=== PATIENT | female | born 1960 | race Caucasian/White ===

== ENCOUNTER 2016-09-10 11:20 | Outpatient (CLI) | payer MEDICARE ==
[2016-09-10 12:18] LABS: #Basophils 0.1 thou/uL (0.0-0.2); #Eosinphils 0.1 thou/uL (0.0-0.7); #Lymphocytes 2.1 thou/uL (1.20-3.40); #Monocytes 0.5 thou/uL (0.11-0.59); #Neutrophils 4.7 thou/uL (1.40-6.50); %Eosinophils 1.2 % (0.0-10.0); %Monocytes 6.9 % (0.0-10.0); Hematocrit 43.3 % (36.0-47.0); Mean Platelet Volume 7.8 fL (7.4-10.4); Red Blood Cell (RBC) Count 4.82 mill/uL (4.20-5.40); White Blood Cell (WBC) Count 7.5 thou/uL (4.8-10.8)
[2016-09-10 12:34] LABS: ALT (SGPT) 23 U/L (0-55); AST (SGOT) 21 U/L (5-34); Alkaline Phosphatase 95 U/L (40-150); Anion Gap 17 mmol/L (10-20); BUN (Urea Nitrogen) 11 mg/dL (9.8-20.1); Bilirubin, Total 0.7 mg/dL (0.2-1.2); Calc. Creatinine Clearance 0 mL/min (70-130); Calcium 10.2 mg/dL (7.8-10.44); Carbon Dioxide 26 mmol/L (22-29); Chloride 105 mmol/L (98-107); Estimated GFR-MDRD 76; Globulin 2.9 g/dL (2.4-3.5); LDL Cholesterol, Calculated 109 mg/dL; Protein, Total 7.6 g/dL (6.0-8.3)
== END 2016-09-10 11:21 | disposition home or self-care (01) ==
LOC: BURLAB 11:20
PROVIDERS: ATTEND Family Medicine
DX: Z00.00 Encounter for general adult medical examination without abnormal findings (principal)
CPT/HCPCS: 36415; 80053; 80061; 82306; 84443; 85025

== ENCOUNTER 2017-10-16 16:58 | Emergency (ER) | payer MEDICARE ==
[2017-10-16] MEDS ORDERED: Amoxicillin/Potassium Clav 875 MG TAB ONE (17:24)
== END 2017-10-16 18:07 | disposition home or self-care (01) ==
LOC: BURERS 16:58
DX: H60.92 Unspecified otitis externa, left ear (principal); E03.9 Hypothyroidism, unspecified; K21.9 Gastro-esophageal reflux disease without esophagitis; E78.5 Hyperlipidemia, unspecified; I10 Essential (primary) hypertension; Z79.899 Other long term (current) drug therapy
CPT/HCPCS: 99282

== ENCOUNTER 2018-01-05 11:09 | Emergency (ER) | payer MEDICARE ==
--- NOTE | 2018-01-05 19:31 | RAD ---
LEFT HAND THREE VIEWS: 01/05/2018 FINDINGS: Oblique fractures of the proximal phalanges of the 4th and 5th digits were noted. There is no signif icant displacement of the 4th digit fracture. There is only slight displacement of the 5th. The rem ainder of the hand and wrist appear intact. IMPRESSION: Fractures of the 4th and 5th proximal phalanges. POS: HOME
== END 2018-01-05 12:52 | disposition home or self-care (01) ==
LOC: BURERS 11:09
DX: S62.615A Displaced fracture of proximal phalanx of left ring finger, initial encounter for closed fracture (principal); S62.617A Displaced fracture of proximal phalanx of left little finger, initial encounter for closed fracture; E03.9 Hypothyroidism, unspecified; K21.9 Gastro-esophageal reflux disease without esophagitis; E78.5 Hyperlipidemia, unspecified; I10 Essential (primary) hypertension; Z79.899 Other long term (current) drug therapy; W17.2XXA Fall into hole, initial encounter
CPT/HCPCS: 29125

== ENCOUNTER 2020-07-03 11:36 | Outpatient (CLI) | payer MEDICARE ==
--- NOTE | 2020-07-03 18:34 | RAD ---
LEFT KNEE FOUR VIEWS: Date: 07-03-2020 FINDINGS: There are extensive post op and post traumatic changes seen in the distal femur from an old fracture. No acute fracture or area of bony destruction was evident. Two screws remain in the femoral condyles . The joint space is reasonably well preserved. There is some mild arthritic change in the joint, but no effusion was seen. No bony destructive lesions were noted. IMPRESSION: Extensive healed trauma to the distal femur but no acute findings. POS: HOME
== END 2020-07-03 11:37 | disposition home or self-care (01) ==
LOC: BURRAD 11:36
PROVIDERS: ATTEND Nurse Practitioner
DX: M25.562 Pain in left knee (principal); Z87.81 Personal history of (healed) traumatic fracture